=== PATIENT | male | born 2000 ===

== ENCOUNTER → 2024-12-31 16:00 | Outpatient (BNV) | payer OTHER, SELFPAY | PROVIDERS: Visit Provider Internal Medicine | DX: I49.3 Ventricular premature depolarization (principal) | CPT/HCPCS: 93244 ==

== ENCOUNTER → 2024-12-31 16:00 | Outpatient (REF) | payer OTHER, SELFPAY ==
--- NOTE | 2024-12-31 | HM_ITS ---
* Total monitoring time 3 days. * Underlying rhythm is sinus with an average rate of 75/Min. * Ventricular ectopy noted with a burden of 1.3%. Single morphology. Rare couplets and triplets. Multiple short runs noted. Longest 6 beats. Monomorphic. * Diary symptoms of heartbeat in throat associated with ventricular ectopy. MTDD
--- OUTSIDE RECORDS SUMMARY | 2025-01-22 18:03 | XMS_ITS | Encounter Summary ---
Author Organization [facility] Address [address] [place] [phone] Phone Care Team Providers Care Rn Chemical Dependency Name Role Phone Katerina Torres BOILER OPERATOR, DNP Primary Care Prov ider Encounter Details Date Type Department Care Team (Late st Contact Info) Description 08/07/2022 Procedure Pass [facility], Ct Scan - [address] [id number] Social History Tobacco Use Types Packs/Day Years Used Date Smoking Tobacco: Never Assessed Education Answer Date Recorded Are you interested in more education? Not on alessio e 08/07/2022 Are you concerned about learning? Not on file 08/07/2022 No 08/07/2022 No 08/07/2022 Intimate Partner Violence Answer Date R ecorded Are you denied basic needs s uch as food, clothing, or medical care? No 08/07/2022 In the past 12 months have y ou been in a relationship with a person who hurts, threatens, or tries to control you? No 08/07/2022 Are you denied basic needs s uch as food, clothing, or medical care? No 08/07/2022 In the past 12 months have y ou been in a relationship with a person who hurts, threatens, or tries to control you? No 08/07/2022 Sex and Gender Information Value Date Recorded Sex Assigned at Not on file Legal Sex Male 3:59 PM EDT Gender Identity Not on file Sexual Orientation Not on file documented as of this encounter Functional Status * Calculated C-SSRS Risk Score (Lifetime/Recent) Answer Date of Assessment Author No Risk Indicated 08/07/2022 6:57 PM EDT Kori Justin, YVON * [place]ette Suicide Severity Rating Scale (Screener/Recent Self-Report) Question Answer Date of Assessment Author 1. Wish to be (Past 1 Month) No 023 6:57 PM EDT Kori Justin, YVON 2. Non-Specific Active Suici mary Thoughts (Past 1 Month) No 08/07/2022 6:57 PM EDT Kori Justin , YVON 6. Suicidal Behavior (Lifetime) No 3 6:57 PM EDT Kori Justin, YVON documented as of this encounter Plan of Treatment Upcoming Encounters Date Type Department Care Team (Late st Contact Info) Description 02/02/2025 12:30 PM EST Office Visit [facility] [address] [facility] 3rd Floor, [address] [place] [address] Freddy Siddiqi DO [address] [facility] [address] [place] [address] [email or web address] documented as of this encounter Visit Diagnoses Not on filedocumented in this encounter Care Teams Rn Chemical Dependency Relationship Specialty Start Date End Date Katerina Torres CNP, DNP [address] [place] [phone] [email or web address] PCP - General Nurse Practitioner 08/07/22 documented as of this encounter Additional Source Comments The information contained in this document represents components of the legal health record. It is not the complete legal health record.[facility]
--- OUTSIDE RECORDS SUMMARY | 2025-01-22 18:03 | XMS_ITS | Encounter Summary ---
Author Organization [facility] Address [address] [place] [phone] Phone Care Team Providers Care Sportspersons Name Role Phone Katerina Torres CNP, DAMARI Primary Care Prov ider Encounter Details Date Type Department Care Team (Late st Contact Info) Description 08/07/2022 Transcribe Orders Virtual Department [address] [place] [address] Katerina Torres CNP, DAMARI [address] [place] [phone] [email or web address] Abdominal pain, unspecified abdominal location (Primary Dx); Hematuria syndrome Social History Tobacco Use Types Packs/Day Years [...] 6:57 PM EDT Kori Justin, YVON * Grand Suicide Severity Rating Scale (Screener/Recent Self-Report) Question Answer Date of Assessment Author 1. Wish to be (Past 1 Month) No 023 6:57 PM EDT Kori Justin, YVON 2. Non-Specific Active Suici mary Thoughts (Past 1 Month) No 08/07/2022 6:57 PM EDT Kori Justin , YVON 6. Suicidal Behavior (Lifetime) No 6:57 PM EDT Kori Justin, YVON documented as of this encounter Plan of Treatment Upcoming Encounters Date Type Department Care Team (Late st Contact Info) Description 02/02/2025 12:30 PM EST Office Visit [facility] [address] [place] [address] [address]rd Floor, [address] [place] [address] Freddy Siddiqi DO [address] [facility] [address] [place] [phone] [email or web address] documented as of this encounter Visit Diagnoses Diagnosis Abdominal pain, unspecified abdominal location- Primary Hematuria syndrome Hematuria, unspecified documented in this encounter Care Teams Sportspersons Relationship Specialty Start Date End Date Katerina Torres CNP, DNP [address] [place] [phone] [email or web address] PCP - General Nurse Practitioner 08/07/22 documented as of this encounter Additional Source Comments The information contained in this document represents components of the legal health record. It is not the complete legal health record.[facility]
--- OUTSIDE RECORDS SUMMARY | 2025-01-22 18:03 | XMS_ITS | Clinical Summary ---
Author Organization [facility] Address [address] [place] [address] [address] [place] [address] Phone Care Team Providers Care Low Voltage Technician Name Role Phone Katerina Torres CNP, DAMARI Primary Care Prov ider Allergies No known active allergies Medications No known medications Encounters Date Type Department Care Team Description 01/01/2025 Transcribe [facility] [address] [place] [address] [address]rd Floor, [address] [place] [address] Katerina Torres CNP, DAMARI Palpitations (Primary Dx) from Last 3 Months Social History Tobacco Use Types Packs/Day Years Used Date Smoking Tobacco: Never Assessed Education Answer Date Recorded Are you interested in more education? Not on alessio e 08/07/2022 Are you concerned about learning? Not on file 08/07/2022 No 08/07/2022 No 08/07/2022 Digital Access Answer Date Recorded No 08/16/2022 No 08/16/2022 Reliable internet access at home? Not on file 08/16/2022 Device with a working camera? Not on file Intimate Partner Violence Answer Date R ecorded [...] on file Sexual Orientation Not on file Last Filed Vital Signs Vital Sign Reading Time Taken Comments Blood Pressure 125/83 08/07/2022 11:00 PM EDT Pulse 84 08/07/2022 11:38 PM EDT Temperature 37 C (98.6 F) 08/07/2022 11:38 PM EDT Respiratory Rate 16 08/07/2022 6:53 PM EDT Oxygen Saturation 99% 08/07/2022 11:00 PM EDT Inhaled Oxygen Concentration - - Weight 52.6 kg (116 lb) 08/07/2022 6:53 PM EDT Height 175.3 cm (5' 9 ) 08/07/2022 6:53 PM EDT Body Mass Index 17.13 08/07/2022 6:53 PM EDT Plan of Treatment Upcoming Encounters Date Type Department Care Team (Late st Contact Info) Description 02/02/2025 12:30 PM EST Office Visit [facility] [address] [facility] 3rd Floor, [address] [place] [address] Freddy Siddiqi DO [address] [place] [address] [place] [phone] [email or web address] Health Maintenance Due Date Last Done Comments Adult Td,Tdap Booster 2002 DEPRESSION SCREENING 2014 SMOKING Hx and SMOKELESS TOB ACCO SCREENING 11/25/2015 HPV VACCINES (1 - Male 3-dos e series) 2017 MENINGOCOCCAL VACCINES (B) ( 1 of 2 - Standard) 2018 HEPATITIS C SCREENING 2020 HIV ONE-TIME SCREENING (18-6 5 YEARS) 2020 INFLUENZA VACCINE (#1) 2024 COVID-19 VACCINE (1 - 2024-2 6 season) 2024 HEPATITIS A VACCINES Aged Out No long er eligible based on patient's age to complete this topic HIB VACCINES Aged Out No longer eligi ble based on patient's age to complete this topic MENINGOCOCCAL VACCINES (ACWY) Aged Out No longer eligible based on patient's age to complete this topic PNEUMOCOCCAL VACCINES (0-49 years) Aged Out No longer eligible based on patient's age to complete this topic Medical Devices Not on file Insurance Care Teams Low Voltage Technician Relationship Specialty Start Date End Date Katerina Torres CNP, DNP [address] [place] [phone] [email or web address] PCP - General Nurse Practitioner 08/07/22 Additional Source Comments The information contained in this document represents components of the legal health record. It is not the complete legal health record.[facility]
== END ==
LOC: HO.CARD 16:00
PROVIDERS: Visit Provider Registered Nurse
DX: R00.2 Palpitations (principal)
CPT/HCPCS: 93242